=== PATIENT | female | born 1960 | race Caucasian/White ===

== ENCOUNTER → 2017-06-05 | Outpatient (CLI) | payer OTHER, SELFPAY ==
[~2017-06-05] MED LIST: ALBU90OI6 INH; BELVIQ10 MG PO; CELE100 PO; CYAN500 PO; CYCL10 PO; DIPATR PO; ESTR.1TPBW TD; Hydrocodone-Ap1 EA23 PO; IBUHYD PO; IBUP800 PO; IRON PO; LANS30EC PO; MEDR10 PO; MELO7.5 PO; MULTIVITAMIN PO; NIFE30ER PO; Norco 5-325 Ta1 EACH PO; PROM25 PO; ROSU10TA PO; SERT25 PO; SULTRIDS PO; Senna S Tablet1 EACH PO; TRAM50 PO; Vitamin D2000 UNIT PO; ZESTORETIC 20-1 EAC1; [UNRECOGNIZED DRUG - OTHER] PO
== END ==
LOC: LAB 15:16
DX: R73.03 Prediabetes (principal); R94.4 Abnormal results of kidney function studies; R35.0 Frequency of micturition
CPT/HCPCS: 82043

== ENCOUNTER → 2017-06-22 | Outpatient (CLI) | payer OTHER, SELFPAY ==
[2017-06-22 19:37] LABS: Creatinine, Urine Random 89.2 mg/dL (27.00-270.00)
[2017-06-22 19:50] LABS: Protein, Urine Random 397.3 mg/dL (0.0-11.9)
== END | disposition home or self-care (01) ==
LOC: OLS 16:44
PROVIDERS: Internal Medicine
DX: N28.9 Disorder of kidney and ureter, unspecified (principal)
CPT/HCPCS: 82570; 84156

== ENCOUNTER → 2017-07-11 | Outpatient (CLI) | payer OTHER, SELFPAY ==
[~2017-07-11] MED LIST changes: -Norco 5-325 Ta1 EACH PO
[2017-07-11 12:08] LABS: Creatinine Urine 81.4 mg/dL (27.00-270.00); Protein, Urine Quantitative 7.9 mg/dL (0.0-11.9)
== END | disposition home or self-care (01) ==
LOC: LAB 11:33 → LAB SHORT 11:33
PROVIDERS: Internal Medicine
DX: N18.3 Chronic kidney disease, stage 3 (moderate) (principal)
CPT/HCPCS: 81050; 82570; 84156

== ENCOUNTER 2017-10-11 10:08 | Emergency (ER) | payer OTHER, SELFPAY ==
[~2017-10-11] VITALS: Ht 160 cm; Wt 104.3 kg
[2017-10-11] MEDS ORDERED: Norco 5-325 Ta1 EACH PO (11:36)
== END 2017-10-11 12:00 | disposition home or self-care (01) ==
LOC: ER 10:08
DX: M25.561 Pain in right knee (principal); Z88.5 Allergy status to narcotic agent; Z88.8 Allergy status to other drugs, medicaments and biological substances; Z79.899 Other long term (current) drug therapy; E78.5 Hyperlipidemia, unspecified
CPT/HCPCS: 73562-RT

== ENCOUNTER → 2017-12-06 | Outpatient (CLI) | payer OTHER, SELFPAY ==
[~2017-12-06] MED LIST changes: +Norco 5-325 Ta1 EACH PO
[2017-12-06 18:38] LABS: Albumin, Blood 3.4 g/dL (3.4-5.0); Anion Gap 9 mmol/L (6-16); Blood Urea Nitrogen 34 mg/dL (8-24); Bun/Creatinine Ratio 17.5 (12.0-20.0); CO2, Blood 25 mmol/L (21-32); Calcium, Blood 8.8 mg/dL (8.5-10.1); Chloride, Blood 108 mmol/L (98-108); Creatinine, Blood 1.94 mg/dL (0.40-1.00); Glomerular Filtration Rate 28 (60-); Glucose, Blood 113 mg/dL (70-99); Phosphorus, Blood 4.5 mg/dL (2.5-4.9); Potassium, Blood 4.9 mmol/L (3.5-5.5); Sodium, Blood 142 mmol/L (136-145)
== END | disposition home or self-care (01) ==
LOC: LAB SHORT 14:15 → LAB 14:15
PROVIDERS: Internal Medicine
DX: N18.3 Chronic kidney disease, stage 3 (moderate) (principal); D63.1 Anemia in chronic kidney disease
CPT/HCPCS: 80069; 85014; 85018

== ENCOUNTER → 2020-01-15 | Outpatient (CLI) | payer OTHER, SELFPAY ==
[~2020-01-15] MED LIST changes: +ATORVASTATIN CA20 MG PO; +Amantadine100 M1 PO; +FLUO10 PO; +PREGABALIN150 MG PO; +Ventolin/Prove6.7 GM
[2020-01-15 12:35] LABS: Percent Saturation 24.3 % (15.0-50.0)
[2020-01-15 13:30] LABS: Albumin, Blood 3.3 g/dL (3.4-5.0); Anion Gap 6 mmol/L (6-16); Blood Urea Nitrogen 46 mg/dL (8-24); Bun/Creatinine Ratio 21.5 (12.0-20.0); CO2, Blood 27 mmol/L (21-32); Calcium, Blood 9.2 mg/dL (8.5-10.1); Chloride, Blood 110 mmol/L (98-108); Creatinine, Blood 2.14 mg/dL (0.40-1.00); Glomerular Filtration Rate 25 (60-); Glucose, Blood 87 mg/dL (70-99); Phosphorus, Blood 3.4 mg/dL (2.5-4.9); Sodium, Blood 143 mmol/L (136-145)
== END ==
LOC: LAB UCHC 10:53 → LAB SHORT 10:53
PROVIDERS: Family Medicine
DX: I10 Essential (primary) hypertension (principal); Z98.84 Bariatric surgery status
CPT/HCPCS: 36415; 80069; 82306; 82607; 82746; 83540; 83550; 84590

== ENCOUNTER 2020-01-16 12:22 | Day surgery (SDC) | payer OTHER, SELFPAY ==
[~2020-01-16 12:22] MED LIST changes: -ATORVASTATIN CA20 MG PO; -Amantadine100 M1 PO; -FLUO10 PO; -PREGABALIN150 MG PO; -Ventolin/Prove6.7 GM
[2020-01-16] MEDS ORDERED: FLUO10 PO (13:52)
[2020-01-16] MEDS ORDERED: ATORVASTATIN CA20 MG PO (13:52)
[2020-01-16] MEDS ORDERED: PREGABALIN150 MG PO (13:53)
[2020-01-16] MEDS ORDERED: Ventolin/Prove6.7 GM (13:53)
== END 2020-01-16 14:58 | disposition home or self-care (01) ==
LOC: ATC 12:22
DX: E86.1 Hypovolemia (principal); N17.9 Acute kidney failure, unspecified; I95.9 Hypotension, unspecified; E78.5 Hyperlipidemia, unspecified; I12.9 Hypertensive chronic kidney disease with stage 1 through stage 4 chronic kidney disease, or unspecified chronic kidney disease; N18.3 Chronic kidney disease, stage 3 (moderate); K21.9 Gastro-esophageal reflux disease without esophagitis; G47.33 Obstructive sleep apnea (adult) (pediatric); F32.9 Major depressive disorder, single episode, unspecified; J45.909 Unspecified asthma, uncomplicated; E66.01 Morbid (severe) obesity due to excess calories; E78.00 Pure hypercholesterolemia, unspecified; Z88.5 Allergy status to narcotic agent; Z88.6 Allergy status to analgesic agent; F90.9 Attention-deficit hyperactivity disorder, unspecified type; Z98.84 Bariatric surgery status; Z68.41 Body mass index [BMI] 40.0-44.9, adult; Z79.899 Other long term (current) drug therapy
CPT/HCPCS: 96360; J7030

== ENCOUNTER 2020-11-10 06:35 | Day surgery (SDC) | payer OTHER ==
[~2020-11-10] VITALS: Ht 160 cm; Wt 104.0 kg
[~2020-11-10 06:35] MED LIST changes: +ACET500 PO; +ASCO500 PO; +ATOM40 PO; +ATORVASTATIN CA20 MG PO; +Amantadine100 M1 PO; +CALCIUM PO; +Cyclobenzaprine10 MG PO; +FLUO10 PO; +PREGABALIN150 MG PO; +SENNA PLUS PO; +Ultram50 MG PO; +Ventolin/Prove6.7 GM INH
--- NOTE | 2020-11-10 18:43 | NUR ---
SHIFT SUMMARY PT A/O X4 AND STATUS POST FOR A L TOTAL KNEE. PT HAD SPINAL DONE AND HAS REGAINED SENSATION IN HER LEGS. UP TO THE BATHROOM AND VOIDING. WORKED WITH PHYSICAL THERAPY AND DID WELL. NO COMPLAINTS OF PAIN SO FAR THIS SHIFT. WILL POSSIBLY DC TOMORROW. VSS. WILL REPORT TO PITO ROSENBERG.
--- NOTE | 2020-11-11 03:54 | NUR ---
SHIFT SUMMARY POD1 L TKA WITH DR LEVIN. NO ACUTE CHANGE OVERNIGHT. VSS. PT REPORTS MINIMAL PAIN ON L KNEE. L KNEE W/ EARNESTINE WRAP AND POLAR PACK. DRESSING IS CDI. PAIN MANAGED WITH TYLENOL AND RENATO. TOLERATING PO INTAKE DENIES N/V. AMBULATE IN THE HALLWAY ONCE. SLEPT WELL T/O SHIFT. ABX ADMINSTERED. PT DENIES NUMBNESS AND TINGLING SENSATION. CALL LIGHT WITHIN REACH. WILL PROVIDE REPORT TO ONCOMIN NURSE.
[2020-11-11 04:04] LABS: BASOPHILS ABSOLUTE AUTO 0.05 K/mm3 (0.00-0.23); BASOPHILS PERCENT AUTO 1 % (0-2); EOSINOPHILS PERCENT AUTO 4 % (0-6); Hematocrit 41.2 % (33.0-51.0); Hemoglobin 13.3 g/dL (11.5-16.0); IMMATURE GRAN ABSOLUTE AUTO 0.02 K/mm3 (0.00-0.10); IMMATURE GRAN PERCENT AUTO 0 % (0-1); LYMPHOCYTES ABSOLUTE AUTO 1.81 K/mm3 (0.84-5.20); LYMPHOCYTES PERCENT AUTO 24 % (21-46); MONOCYTES ABSOLUTE AUTO 0.67 K/mm3 (0.16-1.47); MONOCYTES PERCENT AUTO 9 % (4-13); Mean Corpuscular HGB 28.8 pg (26.0-34.0); Mean Corpuscular HGB Conc 32.3 g/dL (31.5-36.5); Mean Corpuscular Volume 89 fL (80-100); Mean Platelet Volume 12.2 fL (9.1-12.4); NEUTROPHILS ABSOLUTE AUTO 4.63 K/mm3 (1.96-9.15); NEUTROPHILS PERCENT AUTO 62 % (41-73); Platelet Count 187 K/mm3 (150-400); RDW Coefficient Variation 13.5 % (11.7-14.2); RDW Standard Deviation 43.8 fL (35.1-46.3); Red Blood Cell Count 4.62 M/mm3 (3.80-5.20); White Blood Cell Count 7.48 K/mm3 (4.00-11.30)
[2020-11-11 04:24] LABS: Bun/Creatinine Ratio 17.6 (12.0-20.0); Calcium, Blood 8.4 mg/dL (8.5-10.1); Creatinine, Blood 1.42 mg/dL (0.40-1.00); Potassium, Blood 4.1 mmol/L (3.5-5.5)
[2020-11-11] MEDS ORDERED: XARELTO10 MG PO (10:10)
--- NOTE | 2020-11-11 11:51 | NUR ---
0715- recv report from previous RN Candelaria, pt sleeping in chair, call light within reach, foot rest elevated 0815-dr Goetz rounding on pt 1000-PT working with patient
--- NOTE | 2020-11-11 12:40 | NUR ---
provided pt and daughter with discharge instructions and printed material. peripheral IV removed WNL. aquacel dressing x 1 provided. pt's belonging transported to awaiting vehicle by daughter. pt transported to vehicle via wheelchair.
== END 2020-11-11 12:47 | disposition home or self-care (01) ==
LOC: ORSCMMR 06:35 → ORD 08:15 → ORSCMMR 08:15 → SURS 12:00 → ORSCMMR 11-11 12:47
PROVIDERS: Orthopaedic Surgery
PROC: 8E0Y0CZ Robotic Assisted Procedure of Lower Extremity, Open Approach (ICD-10-PCS; principal; 2020-11-10 08:15)
PROC: 0SRD0JA Replacement of Left Knee Joint with Synthetic Substitute, Uncemented, Open Approach (ICD-10-PCS; principal; 2020-11-10 08:15)
DX: M17.12 Unilateral primary osteoarthritis, left knee (principal); J44.9 Chronic obstructive pulmonary disease, unspecified; N18.9 Chronic kidney disease, unspecified; E66.01 Morbid (severe) obesity due to excess calories; Z68.41 Body mass index [BMI] 40.0-44.9, adult; I10 Essential (primary) hypertension; E78.5 Hyperlipidemia, unspecified; Z79.899 Other long term (current) drug therapy
CPT/HCPCS: 27447; S2900; 36415; 73560-LT; 80048; 85025; 97110; 97116; 97162; A9270; C1776; J0171; J0690; J0735; J2250; J2370; J2704; J2795; J3010; J7120

== ENCOUNTER 2021-03-04 07:38 | Day surgery (SDC) | payer OTHER ==
[~2021-03-04] VITALS: Ht 160 cm; Wt 101.3 kg
[~2021-03-04 07:38] MED LIST changes: +XARELTO10 MG PO
[2021-03-04] MEDS ORDERED: FLUT1DIS2 INH (08:59)
--- NOTE | 2021-03-04 10:04 | NUR ---
Ambulatory in Day Surgery History, Chart, Medications and Allergies reviewed before start of procedure.Patient confirms NPO status and agrees with scheduled surgery. Patient reports completing Chlorhexadine shower X2 prior to admission to hospital.Surgical site prepped with 2% Chlorhexidine cloth wipe. TEETH TO PACU. GLASSES IN PATIENT BAG PER HER REQUEST.
--- NOTE | 2021-03-04 11:25 | NUR ---
03/04/21 1125 Alyson Soni NO SPECIMEN PER DR POONAM MALLOY
--- NOTE | 2021-03-04 15:06 | NUR ---
PT ARRIVED TO THE FLOOR 1315. EARNESTINE WRAP TO R KNEE C/D/I. POLAR PACK ON AND IN PLACE. VITALS TAKEN AT THAT TIME. ICE WATER PROVIDED, NO N/V. DENIES PAIN. A/OX4 COMPLETELY AWAKE.
--- NOTE | 2021-03-04 17:49 | NUR ---
SHIFT SUMMARY POD0 FOR R KNEE ARTHROPLASTY. VITAL SIGNS STABLE. DRESSINGS ON KNEE C/D/I. PT AMBULATING WELL AND PAIN BEING MANAGED BY PO PAIN MEDICATIONS. VOIDING AND PASSING STOOL. INDEPENDENT IN RM. WILL REPORT TO ONCOMING RN.
[2021-03-05 04:17] LABS: BASOPHILS ABSOLUTE AUTO 0.01 K/mm3 (0.00-0.23); BASOPHILS PERCENT AUTO 0 % (0-2); EOSINOPHILS PERCENT AUTO 0 % (0-6); Hematocrit 39.4 % (33.0-51.0); Hemoglobin 13.4 g/dL (11.5-16.0); IMMATURE GRAN ABSOLUTE AUTO 0.05 K/mm3 (0.00-0.10); IMMATURE GRAN PERCENT AUTO 0 % (0-1); LYMPHOCYTES ABSOLUTE AUTO 1.33 K/mm3 (0.84-5.20); LYMPHOCYTES PERCENT AUTO 11 % (21-46); MONOCYTES ABSOLUTE AUTO 0.58 K/mm3 (0.16-1.47); MONOCYTES PERCENT AUTO 5 % (4-13); Mean Corpuscular HGB 28.9 pg (26.0-34.0); Mean Corpuscular Volume 85 fL (80-100); Mean Platelet Volume 11.5 fL (9.1-12.4); NEUTROPHILS ABSOLUTE AUTO 10.51 K/mm3 (1.96-9.15); NEUTROPHILS PERCENT AUTO 84 % (41-73); Platelet Count 197 K/mm3 (150-400); RDW Coefficient Variation 13.5 % (11.7-14.2); RDW Standard Deviation 41.8 fL (35.1-46.3); Red Blood Cell Count 4.64 M/mm3 (3.80-5.20); White Blood Cell Count 12.48 K/mm3 (4.00-11.30)
[2021-03-05 04:38] LABS: Bun/Creatinine Ratio 20.2 (12.0-20.0); Calcium, Blood 8.7 mg/dL (8.5-10.1); Creatinine, Blood 1.29 mg/dL (0.40-1.00); Potassium, Blood 4.3 mmol/L (3.5-5.5)
--- NOTE | 2021-03-05 06:43 | NUR ---
PT IS A/OX3. SHE IS ABLE TO MAKE HER NEEDS KNOWN. PLEASANT AND COOPERATIVE WITH STAFF AND HER CARE. NO EVENTS OVER NIGHT. TOLERATING REG DIET WELL. NO N/V. VOIDS W/O DIFFICULTY. FWW W/SBA W/AMBULATION FROM BED TO BATHROOM. BULKY EARNESTINE WRAP DRESSING TO RIGHT KNEE IS CDI. POLAR PACK IN PLACE. GOOD CSM'S. NO NUMBNESS/TINGLING TO RLE.
[2021-03-05] MEDS ORDERED: XARELTO20 MG PO (08:30)
--- NOTE | 2021-03-05 14:14 | NUR ---
DISCHARGE PATIENT DISCHARGED IN STABLE CONDITION HOME. PERIPHERAL IV REMOVED, AQUACELL DRESSINGS GIVEN TO PATIENT, ALL BELONGINGS PACKED AND SENT WITH PATIENT. PATIENT TAKEN DOWN TO PATIENT ENTRANCE AND ESCORTED INTO CAR
== END 2021-03-05 13:28 | disposition home or self-care (01) ==
LOC: ORSCMMR 07:38 → ORD 10:00 → SURS 13:14 → ORSCMMR 03-05 13:28
PROVIDERS: Orthopaedic Surgery
PROC: 8E0Y0CZ Robotic Assisted Procedure of Lower Extremity, Open Approach (ICD-10-PCS; principal; 2021-03-04 10:00)
PROC: 0SRC0JA Replacement of Right Knee Joint with Synthetic Substitute, Uncemented, Open Approach (ICD-10-PCS; principal; 2021-03-04 10:00)
DX: M17.11 Unilateral primary osteoarthritis, right knee (principal); I10 Essential (primary) hypertension; E78.5 Hyperlipidemia, unspecified; J45.909 Unspecified asthma, uncomplicated; N18.30 Chronic kidney disease, stage 3 unspecified; E66.01 Morbid (severe) obesity due to excess calories; Z68.39 Body mass index [BMI] 39.0-39.9, adult; Z79.899 Other long term (current) drug therapy
CPT/HCPCS: 27447; S2900; 36415; 73560-RT; 80048; 85025; 94640; 94664; 94760; 97110; 97110-CQ; 97116-CQ; 97161; 97530-CQ; A9270; C1776; J0171; J0690; J0735; J1100; J2250; J2370; J2405; J2704; J2795; J3010; J7120

== ENCOUNTER → 2023-09-14 | Outpatient (CLI) | payer BC, OTHER ==
[~2023-09-14] MED LIST changes: +FLUT1DIS2 INH; +XARELTO20 MG PO
== END | disposition home or self-care (01) ==
LOC: LAB SHORT 18:58 → LAB 18:58
DX: N39.0 Urinary tract infection, site not specified (principal)
CPT/HCPCS: 87086